=== PATIENT | female | born 1990 | race Caucasian/White ===

== ENCOUNTER 2017-05-10 17:04 | Emergency (ER) | payer MEDICAID, OTHER ==
[~2017-05-10] VITALS: Ht 157.5 cm; Wt 78.7 kg
[~2017-05-10 17:04] MED LIST: PREN-385 PO
[2017-05-10 17:14] VITALS: BP 122/66
--- NOTE | 2017-05-10 18:10 | NUR ---
Patient ambulated to [facility]. RN evaluating patient.
--- NOTE | 2017-05-10 18:12 | NUR ---
27/F PRESENT TO ER C/O LT EYELID SWELLING x 3 DAYS. PT DENIES INJURY OR VISUAL CHANGES. AAOX4 WITH EVEN AND STEADY GAIT; LUNGS CLEAR BL; HR EVEN AND REGULAR; PT DENIES ANY FEVER, CP, SOB, OR COUGH AT THIS TIME; PATIENT STATES PAIN OF 6/10 AT THIS TIME.
[2017-05-10 18:40] VITALS: BP 122/66
== END 2017-05-10 18:40 | disposition home or self-care (01) ==
LOC: MED 17:04
DX: H00.14 Chalazion left upper eyelid (principal)
CPT/HCPCS: 99282